=== PATIENT | female | born 1980 ===

== ENCOUNTER 2017-02-03 22:47 | Emergency (ER) | payer MEDICAID ==
[2017-02-03 22:47] VITALS: BMI 32.8
[2017-02-03 23:01] VITALS: BP 134/90; PULSE 67; TEMP 98; O2SAT 97
[2017-02-03 23:12] LABS: RBC URINE 1 /hpf (0-3); URINE BACTERIA RARE (<OCC); URINE BILIRUBIN NEGATIVE (NEGATIVE); URINE BLOOD NEGATIVE (NEGATIVE); URINE COLOR Yellow (YELLOW); URINE GLUCOSE (UA) NORMAL (Normal); URINE KETONE NEGATIVE (NEGATIVE); URINE LEUKOCYTE ESTERASE NEG Leu/uL (Negative); URINE PROTEIN NEGATIVE (NEGATIVE); URINE UROBILINOGEN NORMAL mg/dL (0.2-1.0); WBC URINE 1 /hpf (0-5)
--- NOTE | 2017-02-03 23:42 | C.PDOC ---
History Of Present Illness A 37 y/o female c/o mid suprapubic pain on urination, dysuria, and intermittent fever at home for the past few days. Pt denies back pain, vomiting, diarrhea, weakness, numbness, hematuria, vaginal bleeding or discharge, or any other complaints. Time Seen by Provider: 02/03/17 23:09 Chief Complaint (Nursing): Female Genitourinary History Per: Patient History/Exam Limitations: no limitations Onset/Duration Of Symptoms: Days Current Symptoms Are (Timing): Still Present Severity: Mild Quality Of Discomfort: "Pain" Associated Symptoms: Fever. denies: Vomiting, Diarrhea, Back Pain Recent travel outside of the [place]: No Additional History Per: Patient Abnormal Vaginal Bleeding: No Past Medical History Reviewed: Historical Data, Nursing Documentation, Vital Signs Vital Signs: Last Vital Signs Temp 98 F 02/03/17 22:58 Pulse 67 02/03/17 22:58 Resp 20 02/03/17 23:56 BP 134/90 02/03/17 22:58 Pulse Ox 97 02/04/17 02:02 - Medical History PMH: Migraine - [facility] Procedures OP RED-INT FIX TIB/FIBUL (11/02/97) Family History: States: Unknown Family Hx - Social History Hx Tobacco Use: No Hx Alcohol Use: Yes Hx Substance Use: No - Immunization History Hx Tetanus Toxoid Vaccination: No Hx Influenza Vaccination: No Hx Pneumococcal Vaccination: No Review Of Systems Except As Marked, All Systems Reviewed And Found Negative. Constitutional: Positive for: Fever Gastrointestinal: Positive for: Abdominal Pain (Suprapubic pain on urination). Negative for: Vomiting, Diarrhea Genitourinary: Positive for: Dysuria. Negative for: Hematuria, Vaginal Discharge, Vaginal Bleeding Musculoskeletal: Negative for: Back Pain Neurological: Negative for: Weakness, Numbness Physical Exam - Physical Exam Appears: Non-toxic, No Acute Distress Skin: Warm, Dry Eye(s): bilateral: Normal Inspection, PERRL Cardiovascular: Rhythm Regular Respiratory: Normal Breath Sounds, No Accessory Muscle Use, No Rales, No Rhonchi , No Wheezing Gastrointestinal/Abdominal: Soft, Tenderness (Mild suprapubic tenderness), No Distention, No Guarding, No Rebound Back: Normal Inspection, No CVA Tenderness Pelvic: Normal External Exam, Normal Bimanual Exam, No Vaginal Bleeding, Vaginal Discharge (Normal vaginal discharge, clear), No Cervical Motion Tenderness, No Adnexal Tenderness Neurological/Psych: Oriented x3, Normal Speech, Normal Cognition ED Course And Treatment O2 Sat by Pulse Oximetry: 97 (RA) Pulse Ox Interpretation: Normal Progress Note: Impression: A 37 y/o female c/o mid suprapubic pain on urination , dysuria, and intermittent fever at home for the past few days. Plans: Urine culture, UA, Reassess. UA appears normal, urine culture sent, pt treated for UTI based on symptoms. Pt is in no acute distress at this time. Pt was instructed to follow up with OBGYN for Urine cx and further evaluation with in 1 -2 days for evaluation. Disposition Counseled Patient/Family Regarding: Diagnosis, Need For Followup, Rx Given - Disposition Referrals: [facility] [Outside] Disposition: HOME/ ROUTINE Disposition Time: 23:40 Condition: STABLE Additional Instructions: Tylenol or advil for pain Take macrobid as directed Return to ER if worse Prescriptions: Nitrofurantoin Macrocrystals [Macrobid] 1 cap PO BID #14 cap Instructions: Pelvic Pain in Women (ED) - Clinical Impression Clinical Impression: Pelvic pain - Scribe Statement The provider has reviewed the documentation as recorded by the Scribe Kimberly cali All medical record entries made by the Scribe were at my direction and personally dictated by me. I have reviewed the chart and agree that the record accurately reflects my personal performance of the history, physical exam, medical decision making, and the department course for this patient. I have also personally directed, reviewed, and agree with the discharge instructions and disposition.
[2017-02-03 23:57] VITALS: RESP 20
== END 2017-02-03 23:56 | disposition home or self-care (01) ==
LOC: C.ER 22:47
DX: R10.2 Pelvic and perineal pain (principal)

== ENCOUNTER 2018-04-07 15:32 | Emergency (ER) | payer MEDICAID ==
[2018-04-07 15:33] VITALS: BMI 30.9
[2018-04-07 15:44] VITALS: O2SAT 100
[2018-04-07] MEDS ORDERED: Naproxen 550 mg Tab PO STA (16:43)
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
[2018-04-07] MEDS ORDERED: Naproxen 550 mg Tab PO ONE (16:50)
[2018-04-07 16:54] VITALS: BP 128/84; PULSE 62; RESP 18; TEMP 98.5
== END 2018-04-07 16:54 | disposition home or self-care (01) ==
LOC: C.ER 15:32
DX: S29.012A Strain of muscle and tendon of back wall of thorax, initial encounter (principal); V89.2XXA Person injured in unspecified motor-vehicle accident, traffic, initial encounter

== ENCOUNTER 2018-04-09 10:13 | Day surgery (SDC) | payer MEDICAID ==
[2018-04-07 10:03] VITALS: BMI 30.9
[2018-04-09] MEDS ORDERED: Propofol 10 mg/ml Inj (20 ML) ONE (12:23)
[2018-04-09] MEDS ORDERED: Midazolam 2 MG/2 ML VIAL ONE (12:23)
[2018-04-09] MEDS ORDERED: Succinylcholine Chloride 20 mg/ml Syr (5 ml) IV ONE (12:25)
[2018-04-09] MEDS ORDERED: Lidocaine Hydrochloride 5 ML INJ ONE (12:25)
[2018-04-09] MEDS ORDERED: Rocuronium 10 mg/ml (10 ml) ONE (12:25)
[2018-04-09] MEDS ORDERED: Ciprofloxacin 400mg/200ml D5W 400 MG/200 ML BAG IVPB ONE (13:18)
[2018-04-09] MEDS ORDERED: Neostigmine Methylsulfate 3mg/3ml Syringe IV ONE (14:19)
[2018-04-09] MEDS ORDERED: HYDROmorphone 0.5 mg/0.5 ml ISec IVP PRN (14:43)
--- NOTE | 2018-04-09 14:44 | PCM.SURG1 ---
Surgeon's Initial Post Op Note - Surgeon's Notes Surgeon: Stan Manager Summer: Hitesh PGY4 Type of Anesthesia: General Endo Pre-Operative Diagnosis: Cholelithiasis Operative Findings: normal anatomy Post-Operative Diagnosis: same Operation Performed: laparoscopic cholecystectomy Specimen/Specimens Removed: gallbladder Estimated Blood Loss: EBL {In ML}: 10 Blood Products Given: N/A Drains Used: No Drains Post-Op Condition: Good Date of Surgery/Procedure: 04/09/18 Time of Surgery/Procedure: 14:44
[2018-04-09 17:06] VITALS: RESP 16
[2018-04-09 18:19] VITALS: BP 100/64; PULSE 59; TEMP 97.6; O2SAT 99
--- NOTE | 2018-04-10 19:23 | OP ---
Copied To: Gaviota Pierec MD Attending MD: Gaviota Pierce MD PROCEDURE DATE: 04/09/2018 SURGEON: Gaviota Pierce M.D. CREATIVE STRATEGIST: Mark Proctor DO ANESTHESIA: General. PREOPERATIVE DIAGNOSIS: Cholelithiasis. POSTOPERATIVE DIAGNOSIS: Cholelithiasis. PROCEDURE: Laparoscopic cholecystectomy. DESCRIPTION OF OPERATION: With the patient in the supine position under adequate general anesthesia, the abdomen was prepped and draped in the usual sterile manner. Veress needle puncture was performed at the umbilicus with insufflation to 15 cm of water pressure of CO2 and a 10 mm laparoscopic trocar was inserted via an infraumbilical incision. Under direct vision, the additional trocars were inserted in the epigastrium and right costal margin. The gallbladder was visualized. The fundus was grasped and elevated. The gallbladder was not acutely inflamed; however, there were numerous adhesions of the omentum to the peritoneal surface of the gallbladder consistent with recent inflammation. These were taken down bluntly with adhesions to the liver being divided sharply and the fundus was elevated allowing the infundibulum to be visualized and the infundibulum was grasped and retracted laterally. The cystic duct was identified and dissected. The cystic duct was cleared down towards the junction with the common bile duct and then the cystic duct, which was quite narrow in diameter was viewed anteriorly and posteriorly. The cystic duct was triply clipped and divided. The cystic artery was identified and dissected and the cystic artery was also triply clipped and divided. The gallbladder was dissected free of the liver bed using electrocautery. The liver bed was inspected for hemostasis and the dissection was completed. The gallbladder was placed in a specimen retrieval bag and removed via the umbilical port site. It was noted to be packed with small stones with a few moderately-sized stones in the fundal area as well. The right upper quadrant was again examined for hemostasis. The pneumoperitoneum was released and the trocars were removed. The umbilical port site was closed with a [id number] fascial suture of 0 Vicryl suture. All incisions were closed with 4-0 Monocryl subcuticular sutures and Steri-Strips. Dry sterile dressings were applied. The patient tolerated the procedure well and transferred to the recovery room in stable condition. Estimated blood loss for the procedure was 10 mL. Gaviota Pierce MD [facility] # [id number]
== END 2018-04-09 18:20 | disposition home or self-care (01) ==
LOC: C.SDS 10:13
PROVIDERS: ATTEND Specialist
DX: K80.20 Calculus of gallbladder without cholecystitis without obstruction (principal)
CPT/HCPCS: 47562; 88304; J0744; J1170; J2250; J2405; J2704; J2710; J3010

== ENCOUNTER 2018-08-17 00:06 | Emergency (ER) | payer MEDICAID ==
[2018-08-17 00:07] VITALS: BMI 30.9
[2018-08-17 00:34] VITALS: RESP 14; TEMP 98; O2SAT 99
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
[2018-08-17 01:04] LABS: SQUAMOUS EPITHIAL 1 /hpf (0-5); URINE BACTERIA RARE (<OCC); URINE BILIRUBIN NEGATIVE (NEGATIVE); URINE BLOOD 3+ (NEGATIVE); URINE CLARITY Clear (Clear); URINE COLOR Straw (YELLOW); URINE GLUCOSE (UA) NORMAL (Normal); URINE LEUKOCYTE ESTERASE NEG Leu/uL (Negative); URINE PROTEIN NEGATIVE (NEGATIVE); URINE UROBILINOGEN NORMAL mg/dL (0.2-1.0)
[2018-08-17 01:05] LABS: HCG,QUALITATIVE URINE NEGATIVE (NEGATIVE)
[2018-08-17 02:01] VITALS: BP 110/70; PULSE 80
== END 2018-08-17 01:00 | disposition home or self-care (01) ==
LOC: C.ER 00:06
DX: N93.9 Abnormal uterine and vaginal bleeding, unspecified (principal)

== ENCOUNTER 2018-08-20 07:48 | Outpatient (CLI) | payer MEDICAID | END 2018-08-20 07:49 | disposition home or self-care (01) | LOC: C.USIC 07:48 | DX: R10.2 Pelvic and perineal pain (principal) ==